=== PATIENT | female | born 1970 | race Caucasian/White ===

== ENCOUNTER 2017-07-22 15:43 | Inpatient (IN) | payer OTHER ==
[~2017-07-22] VITALS: Ht 157.5 cm; Wt 68.5 kg
[2017-07-22 17:10] LABS: ALKALINE PHOSPHATASE 115 U/L (46-116); ALT/SGPT 16 U/L (14-59); AST/SGOT 18 U/L (15-37); BILIRUBIN TOTAL 0.88 mg/dL (0.20-1.00); CALCIUM 8.5 mg/dL (8.5-10.1); CHLORIDE SERUM 91 mmol/L (98-107); CREATININE SERUM 0.9 mg/dL (0.6-1.0); GFR1 > 60 mL/min; GLUCOSE SERUM 394 mg/dL (74-106); LIPASE 56 IU/L (73-393); POTASSIUM SERUM 3.1 mmol/L (3.5-5.1); SODIUM SERUM 125 mmol/L (136-145); TOTAL PROTEIN, SERUM 7.6 g/dL (6.4-8.2)
[2017-07-22 17:11] LABS: PLATELET COUNT 204 x10^3mcL (130-400); RED CELL DISTRIBUTION WIDTH 13.5 % (11.5-14.5)
[2017-07-22 17:36] LABS: BASOPHIL % 0 % (0-2)
[2017-07-22 17:44] LABS: ALBUMIN 2.9 g/dL (3.4-5.0)
[2017-07-22 18:01] LABS: rbc morphology (normal/abnorm) ABNORMAL (NORMAL)
[2017-07-22 19:29] LABS: UA SPECIFIC GRAVITY <=1.005 (1.005-1.035); microscopic required? YES; urine erythrocyte 1+ (NEGATIVE)
[2017-07-23 00:17] LABS: APPEARANCE CSF CLEAR; COLOR CSF COLORLESS; VOLUME CSF 7.5 mL
[2017-07-23 00:18] LABS: RBC CSF 2 /cumm (0); WBC CSF 3 /cumm (0-5)
[2017-07-23 00:59] LABS: TOTAL PROTEIN CSF 26.8 mg/dL (15-45)
[2017-07-23 02:58] VITALS: BP 152/79
[2017-07-23 05:34] VITALS: BP 111/64
[2017-07-23 06:30] LABS: PLATELET COUNT 213 x10^3mcL (130-400); RED CELL DISTRIBUTION WIDTH 13.4 % (11.5-14.5)
[2017-07-23 06:46] LABS: CALCIUM 8.1 mg/dL (8.5-10.1); CARBON DIOXIDE 17.8 mmol/L (21-32); CHLORIDE SERUM 99 mmol/L (98-107); CREATININE SERUM 0.8 mg/dL (0.6-1.0); GFR1 > 60 mL/min; GLUCOSE SERUM 297 mg/dL (74-106); POTASSIUM SERUM 3.4 mmol/L (3.5-5.1); SODIUM SERUM 132 mmol/L (136-145)
[2017-07-23 08:20] LABS: BAND NEUTROPHIL 3 % (0-10); BASOPHIL 0 % (0-2); MONOCYTE 4 % (0-7); SEGMENTED NEUTROPHILS 89 % (37-75)
[2017-07-23 08:21] LABS: PLATELET MORPHOLOGY PLATELETS NORMAL; rbc morphology (normal/abnorm) NORMAL (NORMAL)
[2017-07-23 08:36] VITALS: BP 112/71
[2017-07-23 12:51] VITALS: BP 113/77
[2017-07-23 16:25] VITALS: BP 150/83
[2017-07-23 20:35] VITALS: BP 107/69
[2017-07-24 05:09] VITALS: BP 134/76
[2017-07-24 06:36] LABS: PLATELET COUNT 174 x10^3mcL (130-400); RED CELL DISTRIBUTION WIDTH 13.6 % (11.5-14.5)
[2017-07-24 06:40] LABS: BASOPHIL % 0 % (0-2)
[2017-07-24 06:47] LABS: CARBON DIOXIDE 19.6 mmol/L (21-32); CHLORIDE SERUM 101 mmol/L (98-107); CREATININE SERUM 0.6 mg/dL (0.6-1.0); GFR1 > 60 mL/min; GLUCOSE SERUM 233 mg/dL (74-106); MAGNESIUM 1.9 mg/dL (1.8-2.4); POTASSIUM SERUM 3.5 mmol/L (3.5-5.1); SODIUM SERUM 131 mmol/L (136-145)
[2017-07-24 09:07] VITALS: BP 117/71
[2017-07-24 13:51] VITALS: BP 136/80
[2017-07-24 17:42] VITALS: BP 133/76
[2017-07-24 21:24] VITALS: BP 148/81
[2017-07-25 06:32] VITALS: BP 146/82
[2017-07-25 07:14] LABS: BASOPHIL % 0.3 % (0-2); PLATELET COUNT 202 x10^3mcL (130-400)
[2017-07-25 07:26] LABS: CALCIUM 8.4 mg/dL (8.5-10.1); CARBON DIOXIDE 22.8 mmol/L (21-32); CHLORIDE SERUM 106 mmol/L (98-107); CREATININE SERUM 0.6 mg/dL (0.6-1.0); GFR1 > 60 mL/min; GLUCOSE SERUM 135 mg/dL (74-106); POTASSIUM SERUM 3.4 mmol/L (3.5-5.1); SODIUM SERUM 138 mmol/L (136-145)
[2017-07-25 08:48] VITALS: BP 146/82
[2017-07-25 10:00] VITALS: BP 157/93
[2017-07-25] MEDS ORDERED: LEVEMIR100 U/M1 SC (10:19)
[2017-07-25] MEDS ORDERED: METFORMIN HCL1000 MG PO (10:20)
[2017-07-25] MEDS ORDERED: CEPHALEXIN500 M1 PO (10:21)
[2017-07-25] MEDS ORDERED: ZESTRIL5 MG PO (10:22)
[2017-07-25 12:00] VITALS: Ht 157.5 cm; Wt 68.5 kg
[2017-07-25 13:47] VITALS: BP 118/76; BP 156/88
== END 2017-07-25 14:15 | disposition home or self-care (01) | DRG 872 ==
LOC: ED 15:43 → DU 07-23 01:14
PROVIDERS: Emergency Medicine; Internal Medicine Pulmonary Disease; ADMIT Internal Medicine
PROC: 009U3ZX Drainage of Spinal Canal, Percutaneous Approach, Diagnostic (ICD-10-PCS; principal; 2017-07-23)
DX: A41.50 Gram-negative sepsis, unspecified (principal); N12 Tubulo-interstitial nephritis, not specified as acute or chronic; E87.1 Hypo-osmolality and hyponatremia; E11.65 Type 2 diabetes mellitus with hyperglycemia; E86.0 Dehydration; E87.6 Hypokalemia; Z88.3 Allergy status to other anti-infective agents; Z91.013 Allergy to seafood; I10 Essential (primary) hypertension
CPT/HCPCS: 90658; J0696; J1815; J1885; J2001; J2270; J2405; J3010; J3480; J7030

== ENCOUNTER 2019-06-10 10:00 | Emergency (ER) | payer MEDICAID ==
[~2019-06-10] VITALS: Ht 157.5 cm; Wt 72.3 kg
[~2019-06-10 10:00] MED LIST: CEPHALEXIN500 M1 PO; LEVEMIR100 U/M1 SC; METFORMIN HCL1000 MG PO; ZESTRIL5 MG PO
[2019-06-10 10:01] VITALS: Ht 157.5 cm; Wt 72.3 kg
[2019-06-10 11:13] LABS: CARBON DIOXIDE 25.4 mmol/L (21-32); CHLORIDE SERUM 105 mmol/L (98-107); CREATININE SERUM 0.7 mg/dL (0.6-1.0); GFR1 > 60 mL/min; GLUCOSE SERUM 243 mg/dL (74-106); POTASSIUM SERUM 3.5 mmol/L (3.5-5.1); SODIUM SERUM 139 mmol/L (136-145)
[2019-06-10 11:17] LABS: ALKALINE PHOSPHATASE 124 U/L (46-116); ALT/SGPT 14 U/L (14-59); AST/SGOT 12 U/L (15-37); BILIRUBIN TOTAL 0.49 mg/dL (0.20-1.00); LIPASE 49 IU/L (73-393); TOTAL PROTEIN, SERUM 7.2 g/dL (6.4-8.2)
[2019-06-10 11:18] LABS: ALBUMIN 3.3 g/dL (3.4-5.0); BASOPHIL % 0.5 % (0-2); PLATELET COUNT 256 x10^3mcL (130-400); RED CELL DISTRIBUTION WIDTH 13.2 % (11.5-14.5)
[2019-06-10 14:46] VITALS: BP 158/60
== END 2019-06-10 14:00 | disposition home or self-care (01) ==
LOC: ED 10:00
PROVIDERS: Emergency Medicine
DX: K80.20 Calculus of gallbladder without cholecystitis without obstruction (principal); I10 Essential (primary) hypertension; E11.9 Type 2 diabetes mellitus without complications; F41.9 Anxiety disorder, unspecified; Z88.8 Allergy status to other drugs, medicaments and biological substances; Z91.013 Allergy to seafood
CPT/HCPCS: J1885; J7030; Q0092